=== PATIENT | male | born 1990 ===

== ENCOUNTER 2018-04-17 09:36 | Emergency (ER) | payer SELFPAY ==
[2018-04-17 09:47] VITALS: TEMP 98.2
[2018-04-17] MEDS ORDERED: Albuterol-Ipratrop 3 mg / 0.5 (3 ml) UD ONE ×2 (09:49→10:10)
--- NOTE | 2018-04-17 09:52 | C.PDOC ---
History Of Present Illness 28 year old male presents to the ED c/o worsening SOB for the past 6 days. Patient also reports intermittent SOB, patient states he felt fine yesterday. Patient awoke last night stating "Like I couldn't get a full breath in". Patient also reports dyspnea on exertion, subjective fever several days ago. Reports history of smoking. Patient denies history of asthma, CP, nausea, vomit, recent travel, sick contacts. WORSENING SOB X 6 DAYS. INTERMIT SOB, PS FELT FINE YEST AWOKE LAST NIGHT "LIKE I COULDNT GET A FULL BREATH IN". +ESPINAL. DENIES HO ASTHMA. +SMOKER. SUBJ FEVER SEV DAYS AGO. NO CP, NV. EXAM MILD DIST NEB IN PROGRESS LUNGS BL EXP WHEEZE +RETRACTION SPEAKING FULL SENTENCES +TACHYPNEA CV RRR NO EDEMA WARM DRY Time Seen by Provider: 04/17/18 09:44 Chief Complaint (Nursing): Shortness Of Breath History Per: Patient History/Exam Limitations: no limitations Onset/Duration Of Symptoms: Days (6) Current Symptoms Are (Timing): Still Present Initiating Event: Upper Respiratory Illness Quality: "Pain" Exacerbating Factor(s): Exertion Current Respiratory Medications: See Home Med List Associated Symptoms: Fever Recent travel outside of the [place]: No Additional History Per: Patient Past Medical History Reviewed: Historical Data, Nursing Documentation, Vital Signs Vital Signs: Last Vital Signs Temp 98.2 F 04/17/18 09:46 Pulse 99 H 04/17/18 09:46 Resp 20 04/17/18 09:46 BP 134/68 04/17/18 09:46 Pulse Ox 96 04/17/18 09:46 - Medical History PMH: Back Problems (Herniated discs) Surgical History: No Surg Hx Family History: States: Unknown Family Hx - Social History Hx Alcohol Use: No Hx Substance Use: No - Immunization History Hx Tetanus Toxoid Vaccination: No Hx Influenza Vaccination: No Hx Pneumococcal Vaccination: No Review Of Systems Constitutional: Positive for: Fever. Negative for: Chills ENT: Negative for: Nose Discharge Cardiovascular: Negative for: Chest Pain Respiratory: Positive for: Shortness of Breath. Negative for: Cough, Wheezing Gastrointestinal: Negative for: Nausea, Vomiting, Abdominal Pain Skin: Negative for: Rash Neurological: Negative for: Weakness, Numbness, Headache, Dizziness Physical Exam - Physical Exam Appears: Non-toxic, In Acute Distress Skin: Normal Color, Warm, Dry Head: Atraumatic, Normacephalic Eye(s): bilateral: Normal Inspection Oral Mucosa: Moist Neck: Normal ROM, Supple Chest: Symmetrical Cardiovascular: Rhythm Regular Respiratory: No Rales, No Rhonchi, Wheezing (B/L expiratory), Other (+ retractions, speaking full sentences, + tachypnea. ) Gastrointestinal/Abdominal: Soft, No Tenderness, No Guarding, No Rebound Extremity: Normal ROM, No Tenderness, No Pedal Edema Neurological/Psych: Oriented x3, Normal Speech, Normal Cognition Gait: Steady ED Course And Treatment - Laboratory Results Result Diagrams: 04/17/18 10:21 04/17/18 10:21 ECG: Interpreted By Me, Viewed By Me ECG Rhythm: Sinus Rhythm Interpretation Of ECG: Normal sinus rhythm with sinus arrhythmia Rate From EC O2 Sat by Pulse Oximetry: 96 (ON RA) Pulse Ox Interpretation: Normal - Radiology CXR: Interpreted by Me CXR Interpretation: Yes: No Acute Disease Reevaluation Time: 11:12 Reassessment Condition: Improved (SP MULT NEBS, PS FEELS MUCH BETTER. VSS N[place]uerite) Medical Decision Making Medical Decision Making: Plan: * EKG * Labs * CXR * Duoneb nebulizer * Solumedrol 80 mg IVP * Toradol 30 mg IVP Disposition Counseled Patient/Family Regarding: Studies Performed, Diagnosis, Need For Followup, Rx Given, Smoking Cessation - Disposition Referrals: YOUR,PMD [Other] Disposition: HOME/ ROUTINE Disposition Time: 11:12 Condition: IMPROVED Additional Instructions: FOLLOW UP WITH YOUR PMD IF RECURRENT SYMPTOMS. STOP SMOKING IMMEDIATELY. Prescriptions: Albuterol HFA [Ventolin HFA 90 mcg/actuation (8 g)] 1 puff IH Q4 #1 inhaler Ibuprofen [Motrin] 600 mg PO Q6 #30 tab predniSONE [Prednisone] 60 mg PO DAILY #12 tab Instructions: Asthma, Adult (DC), Quitting Smoking Forms: [facility] ([place]) - Clinical Impression Clinical Impression: Bronchospasm, Dyspnea, Bronchitis - Scribe Statement The provider has reviewed the documentation as recorded by the Scribe Eagle Herrmann All medical record entries made by the Scribe were at my direction and personally dictated by me. I have reviewed the chart and agree that the record accurately reflects my personal performance of the history, physical exam, medical decision making, and the department course for this patient. I have also personally directed, reviewed, and agree with the discharge instructions and disposition.
[2018-04-17] MEDS: Albuterol-Ipratrop 3 mg / 0.5 (3 ml) UD IH SCH ×3 (10:04→11:22)
[2018-04-17] MEDS ORDERED: MethylPREDNISolone 40 mg Vial ONE (10:10)
[2018-04-17 10:37] LABS: BASO # 0.1 K/uL (0.0-0.2); BASO % 0.7 % (0.0-2.0); EOS # 0.5 K/uL (0.0-0.7); HEMOGLOBIN 14.2 g/dL (12.0-18.0); LYMPH # 1.7 K/uL (1.0-4.3); LYMPH % 18.7 % (20.0-40.0); MEAN CELL VOLUME 82.9 fL (80.0-94.0); MEAN CORPUSCULAR HEMOGLOBIN 28.3 pg (27.0-31.0); MEAN CORPUSCULAR HGB CONC 34.2 g/dL (33.0-37.0); MEAN PLATELET VOLUME 6.8 fL (7.2-11.7); MONO # 0.6 K/uL (0.0-0.8); MONO % 6.4 % (0.0-10.0); NEUT # 6.1 K/uL (1.8-7.0); NEUT % 68.2 % (50.0-75.0); NRBC % 0.2 % (0.0-2.0); RBC 5.01 Mil/uL (4.40-5.90); RED CELL DISTRIBUTION WIDTH 12.9 % (11.5-14.5)
[2018-04-17 10:48] LABS: BLOOD UREA NITROGEN 12 mg/dL (9-20); CALCIUM 9.3 mg/dl (8.6-10.4); GFR NON-AFRICAN AMERICAN > 60
--- NOTE | 2018-04-17 11:23 | RAD ---
Date of service: 04/17/2018 HISTORY: SOB COMPARISON: No prior. TECHNIQUE: Chest PA and lateral FINDINGS: LUNGS: No active pulmonary disease. PLEURA: No significant pleural effusion identified. No pneumothorax apparent. CARDIOVASCULAR: No aortic atherosclerotic calcification present. Normal cardiac size. No pulmonary vascular congestion. OSSEOUS STRUCTURES: No significant abnormalities. VISUALIZED UPPER ABDOMEN: Normal. OTHER FINDINGS: None. IMPRESSION: No active disease.
[2018-04-17 11:44] VITALS: BP 129/78; PULSE 83; RESP 17; O2SAT 95
--- NOTE | 2018-04-20 19:46 | CARD ---
APPROVED REPORT Date of service: 04/17/2018 EKG Measurement Heart [id number] <Conclusion> Normal sinus rhythm with sinus arrhythmia Possible Left atrial enlargement Borderline ECG
== END 2018-04-17 11:43 | disposition home or self-care (01) ==
LOC: C.ER 09:36
DX: J40 Bronchitis, not specified as acute or chronic (principal); J98.01 Acute bronchospasm; R06.00 Dyspnea, unspecified
CPT/HCPCS: 71046; 80048; 85025; 93005; 94150; 94640; 96374; 96375; 99284; J1885; J2930